=== PATIENT | female | born 1975 | race Caucasian/White ===

== ENCOUNTER 2018-09-01 12:03 | Outpatient (REF) | payer MEDICAID, SELFPAY ==
[2018-09-01 21:00] LABS: Anion Gap 9.3 mmol/L (3-11); BUN 12 mg/dL (7-18); CO2 27.7 mmol/L (21.0-32.0); CREATININE 0.67 mg/dL (0.55-1.02); Calcium 8.8 mg/dL (8.5-10.1); Chloride 106 mmol/L (98-107); Cholesterol 214 mg/dL (50-200); Glucose 105 mg/dL (70-100); HDL Cholesterol 41 mg/dL (40-60); LDL CHOLESTEROL 155 mg/dL (<100); Potassium 4.9 mmol/L (3.5-5.1); Sodium 143 mmol/L (136-145); Triglyceride 188 mg/dL (30-150)
[2018-09-01 21:08] LABS: Hemoglobin A1C 5.6 % (4.5-6.2)
== END 2018-09-01 12:23 ==
LOC: NCHCN 12:03
PROVIDERS: PCP Nurse Practitioner Family; Visit Provider Nurse Practitioner Family
DX: Z13.220 Encounter for screening for lipoid disorders (principal); Z13.1 Encounter for screening for diabetes mellitus
CPT/HCPCS: 80048; 80061; 83721; 83036

== ENCOUNTER 2021-03-13 11:08 | Outpatient (REF) | payer MEDICAID, SELFPAY ==
[2021-03-13 13:33] LABS: HCT 40.3 % (36.0-46.0); HGB 13.7 g/dL (11.2-15.7); MCH 30.2 pg (27.0-33.0); MCV 88.8 fL (80-95); MPV 11.1 fL (8.0-11.0); Platelet Count 236 10^3/uL (130-400); RBC 4.54 10^6/uL (3.93-5.22); WBC 5.08 10^3/uL (4.4-10.8)
[2021-03-13 13:44] LABS: BUN 9 mg/dL (7-18); CREATININE 0.7 mg/dL (0.55-1.02); Calculated LDL 125 mg/dL (<100); Chloride 105 mmol/L (98-107); Cholesterol 213 mg/dL (<200); Glucose 102 mg/dL (74-106); HDL Cholesterol 33 mg/dL (40-60); Potassium 4.3 mmol/L (3.5-5.1); Sodium 142 mmol/L (136-145); Triglyceride 278 mg/dL (<150)
[2021-03-13 13:55] LABS: Hemoglobin A1C 5.3 % (<5.7)
== END 2021-03-13 11:09 | disposition home or self-care (01) ==
LOC: NCHCN 11:08
PROVIDERS: PCP Nurse Practitioner Family; Visit Provider Nurse Practitioner Family
DX: N95.9 Unspecified menopausal and perimenopausal disorder (principal); Z86.32 Personal history of gestational diabetes; E66.9 Obesity, unspecified
CPT/HCPCS: 80048; 80061; 85027; 83036; 84443